=== PATIENT | female | born 1990 | race Hispanic/Latino ===

== ENCOUNTER 2022-05-15 15:17 | Outpatient (CLI) | payer OTHER | END 2022-05-15 15:18 | disposition home or self-care (01) | LOC: BICULT 15:17 | PROVIDERS: ATTEND Family Medicine | DX: O09.892 Supervision of other high risk pregnancies, second trimester (principal); O76 Abnormality in fetal heart rate and rhythm complicating labor and delivery; Z3A.23 23 weeks gestation of pregnancy | CPT/HCPCS: 76805 ==